=== PATIENT | female | born 2005 | race African-American/Black ===

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

== ENCOUNTER 2025-03-23 14:02 | Emergency (ER) | payer MEDICAID ==
[~2025-03-23] VITALS: Ht 170.2 cm; Wt 117.0 kg
[2025-03-23 14:06] VITALS: O2SAT 99
[2025-03-23] MEDS ORDERED: ESK450 MT (16:07)
[2025-03-23 16:16] VITALS: BP 120/75; PULSE 91; RESP 15; TEMP 36.7; O2SAT 99
== END 2025-03-23 16:17 | disposition home or self-care (01) ==
LOC: ER 14:02
DX: F20.9 Schizophrenia, unspecified (principal); F15.90 Other stimulant use, unspecified, uncomplicated; Z76.0 Encounter for issue of repeat prescription; Z79.899 Other long term (current) drug therapy
CPT/HCPCS: 99282